=== PATIENT | female | born 1965 | race Caucasian/White ===

== ENCOUNTER 2018-05-08 18:09 | Emergency (ER) | payer MEDICARE, MEDICAID ==
[~2018-05-08] VITALS: Ht 167.6 cm; Wt 74.4 kg
[~2018-05-08 18:09] MED LIST: ATOR10TA60 PO; FLEXERIL; HYDR-2758 PO; PREG200C PO; [UNRECOGNIZED DRUG - OTHER]
--- NOTE | 2018-05-08 18:40 | PHYS DOC ---
Past History Past Medical History: Bipolar, Other Past Surgical History: Cholecystectomy, Hysterectomy, Other Alcohol Use: None Drug Use: None Adult General Chief Complaint Chief Complaint: BACK PAIN OR INJURY HPI HPI 52-year-old female presents with sudden onset left mid back pain. Patient was sitting on the couch when she began developing a sharp cramping pain in her mid back on the left side. The pain ramped up over about 30 seconds. She was not doing anything strenuous. She denies doing anything strenuous earlier or any trauma. The pain has gotten a bit worse so she came to the ED. Diaphoresis, shortness of breath. She states that her back is not tender to the touch. She's never had anything like this before. She denies history of kidney stones. She denies fever or chills. Review of Systems Review of Systems Constitutional: Denies fever or chills [] Eyes: Denies change in visual acuity, redness, or eye pain [] HENT: Denies nasal congestion or sore throat [] Respiratory: Denies cough or shortness of breath [] Cardiovascular: No additional information not addressed in HPI [] GI: Denies abdominal pain, nausea, vomiting, bloody stools or diarrhea [] : Denies dysuria or hematuria [] Musculoskeletal: Left sided mid back pain[] Integument: Denies rash or skin lesions [] Neurologic: Denies headache, focal weakness or sensory changes [] Endocrine: Denies polyuria or polydipsia [] All other systems were reviewed and found to be within normal limits, except as documented in this note. Allergies Allergies Allergies Coded Allergies Type Severity Reaction Last Updated Verified Penicillins Allergy Intermediate rash 05/20/14 Yes latex Allergy Intermediate rash 05/20/14 No Physical Exam Physical Exam Constitutional: Well developed, well nourished, no acute distress, non-toxic appearance. [] HENT: Normocephalic, atraumatic, bilateral external ears normal, oropharynx moist, no oral exudates, nose normal. [] Eyes: PERRLA, EOMI, conjunctiva normal, no discharge. [] Neck: Normal range of motion, no tenderness, supple, no stridor. [] Cardiovascular:Heart rate regular rhythm, no murmur [] Lungs & Thorax: Bilateral breath sounds clear to auscultation [] Abdomen: Bowel sounds normal, soft, no tenderness, no masses, no pulsatile masses. [] Skin: Warm, dry, no erythema, no rash. [] Back: No tenderness. mild CVA tenderness on the left. [] Extremities: No tenderness, no cyanosis, no clubbing, ROM intact, no edema. [] Neurologic: Alert and oriented X 3, normal motor function, normal sensory function, no focal deficits noted. [] Psychologic: Affect normal, judgement normal, mood normal. [] EKG EKG Sinus rhythm, rate 74, normal axis, no ST elevations or depressions.[] Radiology/Procedures Radiology/Procedures [] Impressions: PQRS Compliance statement: One or more of the following individualized dose reduction techniques were utilized for this examination: 1. Automated exposure control. 2. Adjustment of the mA and/or kV according to patient size. 3. Use of iterative reconstruction technique. Indication:LEFT FLANK PAIN.>HX HYSTERECTOMY, cholecystectomy. TECHNIQUE: CT abdomen and pelvis without IV contrast with multiplanar reformats. COMPARISON: Previous study from 01/05/2015 FINDINGS: Limited evaluation of solid abdominal and pelvic organs due to lack of IV contrast. Heart is normal in size. Clear lung bases. Noncontrast appearance of the liver, spleen, pancreas, adrenals and kidneys are within normal limits. No nephrolithiasis or hydronephrosis. No free pelvic fluid or ascites. Normal appendix. No bowel obstruction. Sigmoid and descending colon diverticulosis. Status post hysterectomy. Urinary bladder demonstrates no radiopaque stones. No suspicious bony lesion. IMPRESSION: 1. No bowel obstruction. Normal appendix. 2. No nephrolithiasis or hydronephrosis. 3. Sigmoid and descending colon diverticulosis without diverticulitis. Electronically signed by: Chuck Gonzalez DO (05/08/2018 7:13 PM) [facility] Course & Med Decision Making Course & Med Decision Making Pertinent Labs and Imaging studies reviewed. (See chart for details) The patient's labs are unremarkable. Her CT of the abdomen and pelvis is negative for acute findings. There is no kidney stone. I additionally ordered an EKG, CXR and a troponin for completeness. The EKG is unremarkable. Chest x- rays negative for acute findings. The troponin is negative. This time I do not have a clear reason for the patient's sudden pain. At this point, I am apt to conclude that it is musculoskeletal despite no street of injury. It does not appear to be cardiac, renal or lung related. I have given her 30 mg of Toradol for the discomfort. This did not improve the patient's pain very much. I then gave her a [place] 5/325. I will discharge her with a short course, 10 tabs of the same. She will follow up with her PCP if her pain does not rapidly improve the next couple days. [] Dragon Disclaimer Dragon Disclaimer This electronic medical record was generated, in whole or in part, using a voice recognition dictation system. Departure Departure: Referrals: NON,STAFF (PCP) Scripts Hydrocodone Bit/Acetaminophen (NORCO 5-325 TABLET) 1 Each Tablet 1 TAB PO PRN Q6HRS PRN for PAIN, #10 TAB 0 Refills Prov: LUI MELCHOR DO 05/08/18 LUI MELCHOR DO May 08, 2018 18:40
[2018-05-08 19:16] LABS: BILIRUBIN,URINE NEG (NEG); CLARITY,URINE CLEAR; COLOR,URINE YELLOW; GLUCOSE,URINE NEG (NEG)
[2018-05-08 19:16] LABS: BASO % 0 % (0-3); EOS # 0.2 x10^3/uL (0.0-0.7); EOS % 3 % (0-3); HEMATOCRIT 45.6 % (36.0-47.0); LYMPH # 2.6 x10^3/uL (1.0-4.8); LYMPH % 30 % (24-48); MEAN CORPUSCULAR HEMOGLOBIN 31 pg (25-35); MEAN CORPUSCULAR HGB CONC 35 g/dL (31-37); MEAN CORPUSCULAR VOLUME 88 fL (79-100); MONO # 0.6 x10^3/uL (0.0-1.1); MONO % 7 % (0-9); NEUT # 5.1 x10^3uL (1.8-7.7); NEUT % 60 % (31-73); PLATELET COUNT 340 x10^3/uL (140-400); RED BLOOD COUNT 5.18 x10^6/uL (3.50-5.40); RED CELL DISTRIBUTION WIDTH 13.2 % (11.5-14.5); WHITE BLOOD COUNT 8.5 x10^3/uL (4.0-11.0)
--- NOTE | 2018-05-08 19:16 | RAD ---
PQRS Compliance statement: One or more of the following individualized dose reduction techniques were utilized for this examination: 1. Automated exposure control. 2. Adjustment of the mA and/or kV according to patient size. 3. Use of iterative reconstruction technique. Indication:LEFT FLANK PAIN.>HX HYSTERECTOMY, cholecystectomy. TECHNIQUE: CT abdomen and pelvis without IV contrast with multiplanar reformats. COMPARISON: Previous study from 01/05/2015 FINDINGS: Limited evaluation of solid abdominal and pelvic organs due to lack of IV contrast. Heart is normal in size. Clear lung bases. Noncontrast appearance of the liver, spleen, pancreas, adrenals and kidneys are within normal limits. No nephrolithiasis or hydronephrosis. No free pelvic fluid or ascites. Normal appendix. No bowel obstruction. Sigmoid and descending colon diverticulosis. Status post hysterectomy. Urinary bladder demonstrates no radiopaque stones. No suspicious bony lesion. IMPRESSION: 1. No bowel obstruction. Normal appendix. 2. No nephrolithiasis or hydronephrosis. 3. Sigmoid and descending colon diverticulosis without diverticulitis. Electronically signed by: Chuck Gonzalez DO (05/08/2018 7:13 PM) [facility]
[2018-05-08 19:17] LABS: BACTERIA,URINE FEW /HPF (0-FEW); NITRITE,URINE NEG (NEG); RBC,URINE 0 /HPF (0-2); SQUAMOUS EPITHELIAL CELL,UR FEW /LPF; UROBILINOGEN,URINE 0.2 mg/dL (0.2 mg/dL); WBC,URINE RARE /HPF (0-4)
[2018-05-08 19:30] LABS: ALBUMIN 4.6 g/dL (3.4-5.0); ALBUMIN/GLOBULIN RATIO 1.4 (1.0-1.7); CALCIUM 9.2 mg/dL (8.5-10.1); CREATININE 0.9 mg/dL (0.6-1.0); TOTAL BILIRUBIN 0.5 mg/dL (0.2-1.0); TOTAL PROTEIN 7.8 g/dL (6.4-8.2)
[2018-05-08] MEDS ORDERED: KETOROLAC 30 MG/ML VIAL. IV ONE (19:45)
--- NOTE | 2018-05-08 19:51 | EKG ---
[address] [address] Test Date: 2018-05-08 Test Time: 19:47:48 Pat Name: FRAN MARCH Department: Room: Gender: F Podiatry Assistant: : [id number] Requested By: LUI MELCHOR Order Number: [id number] Reading MD: Davion Beck MD Measurements Intervals [place] Rate: 74 P: 51 WY: 138 QRS: 59 QRSD: 86 T: 62 QT: 386 QTc: 429 Interpretive Statements SINUS RHYTHM Electronically Signed On 05-10-2018 13:41:31 CDT by Davion Beck MD
[2018-05-08] MEDS ORDERED: HYDROcodone/APAP 5/325MG 1 TAB TABLET PO ONE (20:30)
[2018-05-08] MEDS ORDERED: HYDR-971 PO (20:50)
[2018-05-08 20:53] VITALS: BP 115/79
--- NOTE | 2018-05-09 08:14 | RAD ---
Chest radiograph 05/08/2018 7:57 PM INDICATION: Shortness of breath. COMPARISON: January 05, 2015 TECHNIQUE: Frontal and lateral views of the chest are provided. FINDINGS: The cardiomediastinal silhouette is within normal limits. There are no pleural effusions. There is no pulmonary vascular congestion. There is no pneumothorax. The lungs are clear. Minimal strandy density at the left lung base appear stable and suggestive of scarring. No significant osseous abnormality is identified. IMPRESSION: No acute cardiopulmonary process. Electronically signed by: Chante Mohr MD (05/09/2018 8:10 AM) [id number]
== END 2018-05-08 21:02 | disposition home or self-care (01) ==
LOC: ER 18:09
DX: M54.89 Other dorsalgia (principal); K57.30 Diverticulosis of large intestine without perforation or abscess without bleeding; Z90.49 Acquired absence of other specified parts of digestive tract; Z90.710 Acquired absence of both cervix and uterus; Z88.0 Allergy status to penicillin; Z91.040 Latex allergy status
CPT/HCPCS: 36415; 71046; 74176; 80053; 81001; 84484; 85025; 93005; 96374; 99285; J1885